=== PATIENT | female | born 1945 | race Caucasian/White ===

== ENCOUNTER 2019-12-26 09:50 | Day surgery (SDC) | payer MEDICARE, MEDICAID, SELFPAY ==
[2019-12-19 12:58] VITALS: BMI 25.8
[2019-12-26] VITALS (12 sets, daily range): BP systolic 121–163; BP diastolic 62–90; PULSE 58–78; RESP 7–18; TEMP 36.4–36.8; O2SAT 94–98; BMI 25.0
--- NOTE | 2019-12-26 06:00 | DI.RAD.S_ITS ---
PROCEDURE: XR KNEE RT 1TO2V INDICATIONS: TOTAL RIGHT KNEE TECHNIQUE: 2 view(s) of the knee acquired. COMPARISON: None. FINDINGS: Bones: Patient is status post knee joint arthroplasty. Hardware components are in expected positions. Visualized bony structures are intact. Soft tissues: Overlying postoperative changes are noted. IMPRESSION: Postop changes from right total knee arthroplasty with anatomic right knee alignment. Dictated by: Carlyle Fallon M.D. on 12/26/2019 at 16:42 Approved by: Carlyle Fallon M.D. on 12/26/2019 at 16:42
[2019-12-26] MEDS: ACETAMINOPHEN 325 MG TABLET 975 MG PO (11:19)
[2019-12-26] MEDS: MELOXICAM 7.5 MG TABLET 15 MG PO (11:20)
[2019-12-26] MEDS: LACTATED RINGERS 1,000 ML 42 ML IV ×2 (11:20→14:26)
[2019-12-26] MEDS: PREGABALIN 75 MG CAPSULE PO (11:20)
--- NOTE | 2019-12-26 11:28 | SUR.PREOP ---
confirmed w/Dr. Jarrell and ADONAY Luciano prior o giving meloxicam; patient stated that she doesn't know why it was on their record.
--- NOTE | 2019-12-26 11:35 | SUR.PREOP ---
states that depression is better, issues with son, going to counseling 12 sessions/year - this is her 2nd year. Denies thoughts of harming herself or others.
--- NOTE | 2019-12-26 13:20 | PM.PREOP ---
Pre-operative Note Interval Note History & Physical reviewed/Exam performed by Physician: Yes Changes to H&P: No
--- NOTE | 2019-12-26 13:28 | PM.OP.1 ---
Operative Date/Time/Diagnoses Date of procedure: 12/26/19 Pre-op diagnosis: Right knee osteoarthritis with valgus alignment Post-op diagnosis: same Procedure & Clinicians Procedure: Right total knee arthroplasty Same procedure as scheduled: Yes Indications: The patient presents today for total knee arthroplasty after failure of conservative treatment. The nature of the procedure including the risks and benefits, alternatives, postoperative course and expected outcome were discussed and all questions answered. Consent was obtained. Operative site confirmed and marked. Surgeon: Hugo Jarrell Interior Decorator Painting: Mustapha Hodge Anesthesia Type: General and Local Operative Notes Findings: Preoperatively the knee had a slight flexion contracture and moderate valgus alignment. A standard femoral cut was made. The initial tibial cut was made at about 9 mm off the less affected medial side. The knee was still somewhat tight in both flexion and extension. Another 2 mm was cut. The knee was still tight laterally. The lateral capsular tissues were released using a pie crust technique with a 15 blade. This gave adequate gaps and the knee was nicely balanced in flexion and extension. With trial components the knee went into full extension and flex beyond 135? with excellent patellar tracking. The tibial bone was somewhat soft. There was slight impression of the tibial implant after preparation. Care was taken to wait until the cement had fully cured with the knee compressed in extension. Closure Type: primary Specimen(s): none sent Prosthetic devices, grafts, tissues, transplants, or devices: Loz[employer] Donald BCS: [xx] femoral component, [xx] tibial component, [xx] mm BCS polyethylene tray and [xx] mm round patella Applied: implant(s) Estimated Blood Loss (mL): 10 Blood products transfused: none Tourniquet time (min): 59 Procedure in detail: The patient was taken to the operative suite and placed under general anesthesia. The patient was given prophylactic antibiotics prior to surgery. The patient was also given tranexamic acid, 1 g, just prior to surgery for postoperative hemostasis. The lateral knee was prepped and the joint injected with 20 mL of 1% Lidocaine with epinephrine. The knee was then prepped and draped in usual sterile fashion. The leg was exsanguinated with an Esmarch dressing and the tourniquet raised to [250] torr. A 15 cm anterior incision was made. Next a medial trivector arthrotomy was made. The extensor mechanism was marked to ensure accurate repair. Initial exposing dissection was carried out medially and laterally. The knee was then flexed and the intramedullary femoral guide chetan placed. The distal femoral cut was made in [6]? of valgus at the +[0] position. The femoral size was measured and the appropriate cutting block was then placed and the anterior, posterior and chamfer cuts made. The intramedullary tibial alignment chetan was then placed. The guide was set to remove approximately 9 mm from the less affected medial side. The proximal tibial cut was then made with an oscillating saw. All meniscus and bony debris was then removed. Posterior femoral osteophytes removed with a curved osteotome. Flexion extension gaps were checked. The knee was still somewhat tight in flexion extension so another 2 mm of tibia was removed. This created appropriate gaps but there was still some tightness laterally. The knee was balanced by releasing the lateral capsule with a 15 blade using a pie crust technique. The soft tissues were then injected with a combination of 20 mL of half percent Marcaine with epinephrine and 20 mL of Exparel. The trial components were then placed. The knee was then extended and the patellar thickness was measured and a cut made removing approximately [9] mm of bone. The patella was then sized and drilled. Some excess lateral bone was excised and the patellofemoral ligament released. [The knee went into full extension and flexion beyond 135?]. There was [excellent] medial-lateral balance throughout motion. Patellar tracking was [excellent]. The trial components were removed and the knee was cleansed with Pulsavac irrigation and dried. The final components were cemented with high viscosity vacuum mixed bone cement with antibiotics. The joint was filled with a dilute Betadine solution. The knee was held in extension and the patellar clamped until the cement was adequately cured. The knee was then irrigated. The extensor mechanism was closed with 5 interrupted #1 Vicryl sutures and a running Quill suture at approximately 90 degrees of flexion. The joint was then injected with a combination of 1 g of tranexamic acid and 20 mL of quarter percent Marcaine with epinephrine. The subcutaneous tissue was closed with 2 0 Vicryl. The skin was closed with subcuticular sutures and surgical adhesive. An [Aquacel dressing] and Kt wrap were then applied. The patient tolerated the procedure well and was returned to recovery room in good condition. Complications: none Post-operative Condition: stable Disposition: PACU Plan for aftercare: [facility] protocol for total knee arthroplasty.
[2019-12-26] MEDS: CLINDAMYCIN 900 MG/50 ML PIGGYBACK 50 MG IV ×2 (14:07→21:16)
--- NOTE | 2019-12-26 14:37 | SUR.OPER ---
Supine on padded OR bed. Pillow under head, arms secured on padded armboards <90 degree abduction. Safety belt across torso. Non-operative leg secured with tape over blanket over lower leg. Operative leg secured in DeMayo/Popeye positioner. Foam padded brace at thigh of operative leg.
[2019-12-26] MEDS: BUPIVACAINE 0.25% W/ EPI (PF) 40 ML, BUPIVACAINE LIPOSOME 266 MG, SODIUM CHLORIDE 0.9% ... INJ (14:42)
[2019-12-26] MEDS: BUPIVACAINE 0.25% W/ EPI (PF) 20 ML, TRANEXAMIC ACID 1,000 MG, SODIUM CHLORIDE 0.9% 10 ML INJ (14:43)
[2019-12-26] MEDS: TRANEXAMIC ACID 1,000 MG VIAL 1000 MG INJ (14:43)
[2019-12-26] MEDS: hydrOXYzine 50 MG/ML INJ 25 MG IM (16:33)
[2019-12-26] MEDS: OXYCODONE IR 5 MG TABLET PO (16:33)
--- NOTE | 2019-12-26 16:52 | SUR.PHASEI ---
Addendum entered by Fox Shaffer R.N. 12/26/19 16:55: Report to STEVEN Hollingsworth. Pt was transported to room 220 via bed by Chucky Hernandez and Shad Chin in stable condition. Original Note: assumed care of pt @ 1615 from Chucky Hernandez RN. She was awake, and in stable condition at the time her care was transferred to this RN
[2019-12-26] MEDS: LOSARTAN 50 MG TABLET 100 MG PO (18:04)
[2019-12-26] MEDS: AMLODIPINE 5 MG TABLET PO (18:05)
[2019-12-26] MEDS: ATORVASTATIN 20 MG TABLET PO (18:05)
[2019-12-26] MEDS: LACTATED RINGERS 1,000 ML 125 ML IV (18:06)
[2019-12-26] MEDS: ASPIRIN EC 81 MG TABLET PO (21:15)
[2019-12-26] MEDS: ACETAMINOPHEN 325 MG TABLET 650 MG PO (21:15)
[2019-12-26] MEDS: IBUPROFEN 400 MG TABLET PO (21:15)
[2019-12-27 01:00] VITALS: BP 130/69; PULSE 56; RESP 16; TEMP 36.6; O2SAT 95
[2019-12-27] MEDS: IBUPROFEN 400 MG TABLET PO ×3 (01:07→10:16)
[2019-12-27] MEDS: LACTATED RINGERS 1,000 ML 125 ML IV (02:54)
[2019-12-27 04:55] VITALS: BP 128/70; PULSE 55; RESP 16; TEMP 36.7; O2SAT 92
[2019-12-27 05:23] LABS: Hematocrit 33.9 % (36-46); Hemoglobin 11.6 g/dL (12.0-16.0)
[2019-12-27] MEDS: CLINDAMYCIN 900 MG/50 ML PIGGYBACK 50 MG IV (05:48)
[2019-12-27] MEDS: ACETAMINOPHEN 325 MG TABLET 650 MG PO (06:25)
[2019-12-27 08:00] VITALS: BP 129/71; PULSE 67; RESP 16; TEMP 37.2; O2SAT 95
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
[2019-12-27] MEDS: ASPIRIN EC 81 MG TABLET PO (10:16)
[2019-12-27] MEDS: hydroCHLOROthiazide 12.5 MG CAPSULE PO (10:16)
[2019-12-27] MEDS: DOCUSATE 100 MG CAPSULE PO (10:16)
[2019-12-27] MEDS: CITALOPRAM 20 MG TABLET PO (10:16)
--- NOTE | 2019-12-27 10:48 | CM.DANOTE ---
DCP: Case received, EMR reviewed and met with patient Introduced self and role. Was able to obtain baseline health history and activity level information from patient. DCP assessment completed with information currently available. Patient is a 74 year old female who admitted yesterday morning to the care of the orthopedic team. PCP: Dr. America Lawler. Payer: confirmed: Medicare/Medicaid. Patient came to the hospital for a surgical procedure. She had a right total knee arthroplasty. Patient has history of right knee osteoarthritis. Met with patient in her room. She was sitting up in bed, alert and oriented. She resides in [place], she lives alone, but has supportive friend to help her out after surgery. Patient is independent, and drives. She has discharge orders for home pending her working with P.T. P: Patient is supposed to be discharged home today, and will pursue outpatient P.T. Kisha Landers RN/Broadcast Engineer
--- NOTE | 2019-12-27 12:27 | PC.NURSE ---
Discharge: Pt feels ready to d/c home. Seen by PT and received their instructions. Seen by PA-C and received their instructions. Priority load pass given. Items retreived from safe and given. Pharmacy returned meds and pt reports she has all her belongings now. Minimal pain, discussed block wearing off and may have more pain in a day or 2. vds w/out problems. Diet tolerated without problems. Vds w/out diff. Kt wrap removed and pt applied her denton hose to the rt leg. Wound care instructions given. Already has her rx's. Reviewed d/c packet. Questions answered. Pt d/c to home via auto w/friends.
--- NOTE | 2019-12-27 17:50 | PM.PNPO.1 ---
Subjective Subjective Date Patient Seen: 12/27/19 Time Patient Seen: 07:30 Interval history: POD #1 s/p RTKA w Dr. Jarrell. Patient doing well, minimal pain in R knee. Voiding without difficulty or assistance. Mobilizing with PT. Denies fever, chills, chest pain, shortness of breath, nausea, vomiting Exam Vital Signs (past 8 hours): Oxygen Delivery Method Room Air Oxygen Flow Rate 0 Narrative Exam Narrative: 74 year old female laying comfortably in bed, in no apparent distress. A&Oc3. Dressing CDI, SCDs in place. Sensory function grossly intact to light touch in LE BL. Able to actively dorsiflex/plantar flex LE BL. Capillary refill <2sec LE BL. Calves warm, soft, compressible, non tender to palpation BL. Objective Labs Result Diagrams: 12/27/19 04:45 Labs: Laboratory Results - last 24 hr 12/27/19 04:45 Hgb 11.6 L Hct 33.9 L Assessment & Plan Post-op Postoperative Procedures: Procedures Operation Date: 12/26/19 12:45 Actual Procedures Side Surgeon p Total Knee Arthroplasty Right Hugo Jarrell MD Postoperative day: 1 Postoperative status: doing well Postoperative plan: discharge Postoperative plan narrative: Patient ready for discharge home - pain well managed, mobilizing well with PT, voiding without difficulty or assistance Oxycodone prescription at home ASA 81mg BID for 6 weeks for DVT Prophlayxis Time Spent With Patient Time with patient: less than 15 minutes Quality VTE Deep Vein Thrombosis/Pulmonary Embolism Present on Admission: No
== END 2019-12-27 11:55 | disposition home or self-care (01) ==
LOC: AC 12-27 07:44 → OR 12-27 13:11
PROVIDERS: Family Provider Family Medicine; PCP Family Medicine; Referring Provider Family Medicine; Visit Provider Orthopaedic Surgery
PROC: 0SRC0JZ Replacement of Right Knee Joint with Synthetic Substitute, Open Approach (ICD-10-PCS; CPT 27447; principal; 2019-12-26 12:45)
DX: M17.11 Unilateral primary osteoarthritis, right knee (principal); M21.061 Valgus deformity, not elsewhere classified, right knee
CPT/HCPCS: 27447; 36415; 73560; 85014; 85018; 97116; 97161; C1776; C9290; J1100; J1170; J2250; J2405; J2704; J3010; J3410

== ENCOUNTER → 2023-12-27 11:07 | Outpatient (CLI) | payer MEDICARE, MEDICAID, SELFPAY ==
[2023-12-27 10:57] VITALS: BMI 25.0
--- NOTE | 2023-12-27 11:10 | DI.RAD.S_ITS ---
PROCEDURE: XR SHOULDER RT MIN 2V INDICATIONS: Right shoulder pain TECHNIQUE: 3 views of the shoulder were acquired. COMPARISON: None. FINDINGS: Bones: [id number] acromioclavicular and moderate glenohumeral degenerative changes. Subchondral lucencies are seen. There may be small axillary pelvis also septic bodies. Soft tissues: Axillary clips. IMPRESSION: Moderate glenohumeral and mild to moderate acromioclavicular degenerative changes. Subchondral lucencies likely geodes, versus sequelae of prior erosion. If there is high concern for further derangement, consider MRI evaluation. Dictated by: Bib Raymond M.D. on 12/27/2023 at 15:01 Approved by: Bib Raymond M.D. on 12/27/2023 at 15:02
== END ==
PROVIDERS: Family Provider Family Medicine; PCP Family Medicine; Referring Provider Anesthesiology; Visit Provider Anesthesiology
DX: M25.511 Pain in right shoulder (principal); M47.812 Spondylosis without myelopathy or radiculopathy, cervical region; M54.2 Cervicalgia; M79.18 Myalgia, other site; G89.29 Other chronic pain
CPT/HCPCS: 73030; 99214